=== PATIENT | female | born 1985 | race Caucasian/White ===

== ENCOUNTER → 2018-04-20 | Outpatient (REF) | payer OTHER ==
[2018-04-27 14:14] LABS: HPV LOW VOL RFLX Negative (Negative)
== END ==
LOC: M LAB REF 19:39
DX: Z12.4 Encounter for screening for malignant neoplasm of cervix (principal)

== ENCOUNTER 2019-10-05 07:03 | Emergency (ER) | payer OTHER ==
[~2019-10-05] VITALS: Ht 188 cm; Wt 115.7 kg
[2019-10-05] MEDS ORDERED: LIDOCAINE 5% (LIDODERM) PATCH TD ONE (07:45)
[2019-10-05] MEDS ORDERED: ACETAMINOPHEN 500 MG TAB PO ONE (07:45)
[2019-10-05] MEDS ORDERED: KETOROLAC 60 MG/2 ML VIAL (J1885) IM ONE (07:45)
[2019-10-05 08:00] LABS: BASO # 0.1 10^3/uL (0.0-0.2); BASO % 0.7 % (0.0-1.0); EOS # 0.1 10^3/uL (0.0-0.5); HEMATOCRIT 42.9 % (36.0-47.0); HEMOGLOBIN 13.5 g/dl (12.0-15.5); LYMPH # 1.8 10^3/uL (1.5-5.0); LYMPH % 25.6 % (24.0-44.0); MEAN CORPUSCULAR HEMOGLOBIN 28.1 pg (27.0-33.0); MEAN CORPUSCULAR HGB CONC 31.5 g/dl (32.0-36.5); MEAN CORPUSCULAR VOLUME 89.2 fl (80.0-96.0); MONO # 0.5 10^3/uL (0.0-0.8); MONO % 7.6 % (0.0-5.0); NEUTROPHILS # 4.5 10^3/uL (1.5-8.5); PLATELET COUNT, AUTOMATED 274 10^3/uL (150-450); RED BLOOD COUNT 4.81 10^6/uL (4.00-5.40); WHITE BLOOD COUNT 6.9 10^3/uL (4.0-10.0)
[2019-10-05] MEDS ORDERED: diazePAM 10 MG TAB PO ONE (08:15)
[2019-10-05 08:39] LABS: ERYTHROCYTE SEDIMENTATION RATE 19 mm/hr (0-20)
--- NOTE | 2019-10-05 09:07 | REP ---
INDICATION: Severe back pain PROCEDURE: CT lumbar spine. Axial acquisitions with multiplanar re-formations. COMPARISON STUDIES: No prior similar studies. FINDINGS: There is only minimal degenerative disc disease. Disc heights and vertebral heights are preserved. No evidence of a limiting canal or foraminal stenosis. No evidence of fracture or malalignment. Soft tissues appear unremarkable. CONCLUSION: No acute findings. Unremarkable examination of the lumbar spine. Electronically Signed by Dino Hughes MD 10/05/2019 08:59 A
[2019-10-05] MEDS ORDERED: IBUP80TA PO (09:25)
[2019-10-05] MEDS ORDERED: LIDO5DIS41 TD (09:25)
[2019-10-05] MEDS ORDERED: ROBA750T4 PO (09:25)
[2019-10-05 09:30] VITALS: BP 118/71
[2019-10-05] MEDS ORDERED: PERCOCET 5MG/325MG TAB PO ONE (09:45)
[2019-10-05] MEDS ORDERED: **NOTE PATIENT COMMENT** MISC XX SCH (21:00)
== END 2019-10-05 10:01 | disposition home or self-care (01) ==
LOC: M ED 07:03
DX: M54.5 Low back pain (principal)
CPT/HCPCS: 36415; 72131; 80047; 84702; 85025; 85652; 86140; 96372; 99283; J1885

== ENCOUNTER 2021-02-04 14:40 | Emergency (ER) | payer OTHER ==
[~2021-02-04] VITALS: Ht 188 cm; Wt 113.8 kg
[~2021-02-04 14:40] MED LIST: IBUP80TA PO; LIDO5DIS41 TD; ROBA750T4 PO
--- NOTE | 2021-02-04 17:23 | REP ---
INDICATION: seroma vs abscess umbilicus, s/p BTL 01/05. COMPARISON: None. TECHNIQUE: Real-time sonographic evaluation of umbilical region performed. FINDINGS: There is no umbilical hernia identified. No fluid collection is seen in the umbilical soft tissues. IMPRESSION: Negative ultrasound umbilical soft tissues. <Electronically signed by Lukas Saleh > 02/04/21 [id number]
[2021-02-04] MEDS ORDERED: BACITRACIN OINTMENT 30GM TUBE TOP STA (17:31)
[2021-02-04 17:42] LABS: BASO % 0.3 % (0.0-1.0); EOS # 0.1 10^3/uL (0.0-0.5); EOS % 1.4 % (0.0-3.0); HEMATOCRIT 40.1 % (36.0-47.0); HEMOGLOBIN 12.7 g/dl (12.0-15.5); LYMPH # 2.2 10^3/uL (1.5-5.0); LYMPH % 33.5 % (24.0-44.0); MEAN CORPUSCULAR HEMOGLOBIN 27.9 pg (27.0-33.0); MEAN CORPUSCULAR HGB CONC 31.7 g/dl (32.0-36.5); MEAN CORPUSCULAR VOLUME 87.9 fl (80.0-96.0); MONO # 0.4 10^3/uL (0.0-0.8); MONO % 6.7 % (2.0-8.0); NEUTROPHILS # 3.8 10^3/uL (1.5-8.5); NEUTROPHILS % 57.8 % (36.0-66.0); PLATELET COUNT, AUTOMATED 251 10^3/uL (150-450); RED BLOOD COUNT 4.56 10^6/uL (4.00-5.40); WHITE BLOOD COUNT 6.6 10^3/uL (4.0-10.0)
[2021-02-04 18:00] LABS: ERYTHROCYTE SEDIMENTATION RATE 18 mm/hr (0-20)
[2021-02-04 18:43] VITALS: BP 129/61
== END 2021-02-04 18:44 | disposition home or self-care (01) ==
LOC: M ED 14:40
DX: T85.638A Leakage of other specified internal prosthetic devices, implants and grafts, initial encounter (principal)